=== PATIENT | male | born 1965 | race American Indian/Alaskan Native ===

== ENCOUNTER 2020-08-03 13:16 | Emergency (ER) | payer BC ==
[2020-08-03 13:24] VITALS: BP 113/70
--- NOTE | 2020-08-03 14:17 | XRay Report ---
XR spine lumbosacral 2-3V HISTORY: left lower back pain COMPARISON: None. TECHNIQUE: 3 view(s) of the lumbar spine obtained. FINDINGS: Vertebrae: Normal alignment. Vertebral body heights are preserved. Spondylosis:Disc space heights are preserved. IMPRESSION: 1. No significant abnormality of the lumbar spine. Signer Name: Venkat Smith MD Signed: 08/03/2020 2:13 PM Workstation Name: [id number]
--- NOTE | 2020-08-03 14:18 | XRay Report ---
LEFT HIP 3 VIEW INDICATION / CLINICAL INFORMATION: Left back pain extending into the left leg. COMPARISON: None available. FINDINGS: BONES/JOINT(S): No acute fracture or subluxation. No significant degenerative changes. No focal bone lesions. SOFT TISSUES: No significant abnormality. ADDITIONAL FINDINGS: None. Signer Name: Phong Oliver MD Signed: 08/03/2020 2:14 PM Workstation Name: [id number]
--- NOTE | 2020-08-03 15:12 | Emergency Department Report ---
ED Back Pain/Injury HPI - General Chief Complaint: Back Pain/Injury Stated Complaint: SCIATICA PAIN LEFT HIP AND LEG Time Seen by Provider: 08/03/20 13:28 Source: patient Limitations: No Limitations - History of Present Illness MD Complaint: back pain -: Gradual, days(s) Similar Symptoms Previously: Yes (For the last few days) Place: home Radiation: none Severity: mild, moderate Quality: sharp, aching Consistency: constant Improves With: none Worsens With: none Context: while lifting, turning/twisting Associated Symptoms: denies: confusion, weakness, numbness, difficulty walking, incontinence, fever/chills, constipation, headaches, abdominal pain, rash, seizure, shortness of breath, syncope - Related Data Previous Rx's Medication Instructions Recorded Last Taken Type Ketorolac [Toradol] 10 mg PO Q6H PRN #15 tablet 08/03/20 Unknown Rx methOCARBAMOL [Robaxin TAB] 750 mg PO Q8H PRN #14 tablet 08/03/20 Unknown Rx Allergies Allergy/AdvReac Type Severity Reaction Status Date / Time No Known Allergies Allergy Unverified 08/03/20 13:18 ED Review of Systems ROS: Stated complaint: SCIATICA PAIN LEFT HIP AND LEG Other details as noted in HPI Comment: All other systems reviewed and negative ED Past Medical Hx - Past Medical History Hx Hypertension: Yes Hx Diabetes: Yes (pre) Hx Asthma: Yes - Surgical History Additional Surgical History: arm - Social History Smoking Status: Never Smoker Substance Use Type: Alcohol - Medications Home Medications: Home Medications Medication Instructions Recorded Confirmed Last Taken Type Ketorolac [Toradol] 10 mg PO Q6H PRN #15 tablet 08/03/20 Unknown Rx methOCARBAMOL [Robaxin TAB] 750 mg PO Q8H PRN #14 tablet 08/03/20 Unknown Rx ED Physical Exam - General Limitations: No Limitations General appearance: alert, in no apparent distress - Head Head exam: Present: atraumatic, normocephalic, normal inspection - Eye Eye exam: Present: normal appearance, PERRL, EOMI Pupils: Present: normal accommodation - ENT ENT exam: Present: normal exam, normal orophraynx, mucous membranes moist, TM's normal bilaterally - Neck Neck exam: Present: normal inspection, full ROM - Respiratory Respiratory exam: Present: normal lung sounds bilaterally. Absent: respiratory distress, wheezes, rales, chest wall tenderness, accessory muscle use, decreased breath sounds - Cardiovascular Cardiovascular Exam: Present: regular rate, normal rhythm. Absent: systolic murmur, diastolic murmur, rubs, gallop - GI/Abdominal GI/Abdominal exam: Present: soft, normal bowel sounds. Absent: tenderness, guarding - Rectal Rectal exam: Present: deferred - Extremities Exam Extremities exam: Present: normal inspection, normal capillary refill - Back Exam Back exam: Present: normal inspection, tenderness, paraspinal tenderness. Absent: CVA tenderness (R), CVA tenderness (L) - Expanded Back Exam Expanded Back exam: Sciatic Notch Tenderness: Left 1 - Pain also to this region with palpation. - Neurological Exam Neurological exam: Present: alert, oriented X3, CN II-XII intact, normal gait - Psychiatric Psychiatric exam: Present: normal affect, normal mood. Absent: depressed, agitated, anxious, flat affect, manic, homicidal ideation - Skin Skin exam: Present: warm, dry, intact, normal color. Absent: rash, cyanosis, diaphoretic, erythema, urticaria ED Course Vital Signs 08/03/20 13:19 Temperature 99 F Pulse Rate 103 H Respiratory 20 Rate Blood Pressure 113/70 O2 Sat by Pulse 96 Oximetry ED Medical Decision Making - Radiology Data Radiology results: report reviewed [facility] [address] [place] [address] XRay Report Signed Patient: EFRAÍN TINSLEY MR#: [id number] 2829 : 1965 Acct:[id number] Age/Sex: 54 / M ADM Date: 08/03/20 Loc: ED Attending Dr: Ordering Physician: DARREN SAINI Date of Service: 08/03/20 Procedure(s): XR hip 2-3V LT Accession Number(s): [id number] cc: DARREN SAINI Fluoro Time In Minutes: LEFT HIP 3 VIEW INDICATION / CLINICAL INFORMATION: Left back pain extending into the left leg. COMPARISON: None available. FINDINGS: BONES/JOINT(S): No acute fracture or subluxation. No significant degenerative changes. No focal bone lesions. SOFT TISSUES: No significant abnormality. ADDITIONAL FINDINGS: None. Signer Name: Phong Oliver MD Signed: 08/03/2020 2:14 PM Workstation Name: [id number] Transcribed By: ROLANDA Dictated By: Phong Oliver MD Electronically Authenticated By: Phong Oliver MD Signed Date/Time: 08/03/201413 DD/ 12 TD/TT: [facility] [address] [place] [address] XRay Report Signed Patient: EFRAÍN TINSLEY MR#: [id number] : 1965 Acct:[id number] Age/Sex: 54 / M ADM Date: 08/03/20 Loc: ED Attending Dr: Ordering Physician: DARREN SAINI Date of Service: 08/03/20 Procedure(s): XR spine lumbosacral 2-3V Accession Number(s): [id number] cc: DARREN SAINI Fluoro Time In Minutes: XR spine lumbosacral 2-3V HISTORY: left lower back pain COMPARISON: None. TECHNIQUE: 3 view(s) of the lumbar spine obtained. FINDINGS: Vertebrae: Normal alignment. Vertebral body heights are preserved. Spondylosis:Disc space heights are preserved. IMPRESSION: 1. No significant abnormality of the lumbar spine. Signer Name: Venkat Smith MD Signed: 08/03/2020 2:13 PM Workstation Name: [id number] Transcribed By: KATE Dictated By: Venkat Smith MD Electronically Authenticated By: Venkat Smith MD Signed Date/Time: 08/03/201412 DD/ 11 TD/TT: Critical care attestation.: If time is entered above; I have spent that time in minutes in the direct care of this critically ill patient, excluding procedure time. ED Disposition Clinical Impression: Lumbago with sciatica, left side Disposition: DC-01 TO HOME OR SELFCARE Is pt being admited?: No Does the pt Need Aspirin: No Condition: Stable Instructions: Radicular Pain, Sciatica Prescriptions: methOCARBAMOL [Robaxin TAB] 750 mg PO Q8H PRN #14 tablet PRN Reason: Pain, Moderate (4-6) Ketorolac [Toradol] 10 mg PO Q6H PRN #15 tablet PRN Reason: Pain Referrals: LOPEZ LUJAN MD [Staff Physician] - 3-5 Days
== END 2020-08-03 15:35 | disposition home or self-care (01) ==
LOC: ED 13:16
DX: M54.42 Lumbago with sciatica, left side (principal); I10 Essential (primary) hypertension; E11.9 Type 2 diabetes mellitus without complications; J45.909 Unspecified asthma, uncomplicated; Z98.890 Other specified postprocedural states; Z79.899 Other long term (current) drug therapy
CPT/HCPCS: 72100